=== PATIENT | female | born 1960 | race Two or more races ===

== ENCOUNTER 2016-12-12 14:25 | Emergency (ER) | payer OTHER ==
[~2016-12-12] VITALS: Ht 172.7 cm; Wt 95.3 kg
[2016-12-12] MEDS ORDERED: IV NS 0.9% 500 ML IV ONE (14:40)
[2016-12-12] MEDS ORDERED: IV SET PRIMARY 1 EA INFUS.SET MC ONE (14:40)
[2016-12-12] MEDS ORDERED: ACETAMINOPHEN ES 500 MG TABLET ONE (14:40)
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
[2016-12-12] MEDS ORDERED: ACETAMINOPHEN ES 500 MG TABLET PO ONE (15:00)
[2016-12-12] MEDS ORDERED: IV NS 0.9% 500 ML BAG IV ONE (15:00)
--- NOTE | 2016-12-12 15:00 | NUR ---
US TECH AT BEDSIDE
[2016-12-12 15:03] LABS: BASOPHILS # (AUTO) 0.1 /CMM (0.0-0.2); BASOPHILS % (AUTO) 1.2 % (0.0-2.0); EOSINOPHILS # (AUTO) 0.1 /CMM (0.0-0.7); EOSINOPHILS % (AUTO) 0.7 % (0.0-6.0); HEMATOCRIT 42 % (33-45); HEMOGLOBIN 13.1 g/dL (11.5-14.8); LYMPHOCYTES # (AUTO) 2.2 /CMM (0.8-4.8); LYMPHOCYTES % (AUTO) 21.6 % (20.0-44.0); MEAN CORPUSCULAR HEMOGLOBIN 28 PG (26.0-33.0); MEAN CORPUSCULAR HGB CONC 31 g/dl (31.0-36.0); MEAN CORPUSCULAR VOLUME 90 fL (82-100); MONOCYTES # (AUTO) 0.6 /CMM (0.1-1.30); MONOCYTES % (AUTO) 5.9 % (2.0-12.0); NEUTROPHILS # (AUTO) 7.3 /CMM (1.8-8.9); NEUTROPHILS % (AUTO) 70.6 % (43.0-81.0); PLATELET COUNT (AUTO) 253 /CMM (150-450); RDW COEFFICIENT OF VARIATION 12.9 (11.5-15.0); RED BLOOD CELL COUNT(AUTO) 4.67 MIL/uL (4.0-5.2); WHITE BLOOD COUNT (AUTO) 10.3 K/uL (4.3-11.0)
[2016-12-12 15:14] LABS: ALBUMIN 3.4 g/dL (3.4-5.0); BILIRUBIN,DIRECT 0.1 mg/dL (0.0-0.2); BILIRUBIN,TOTAL 0.3 mg/dL (0.2-1.0); CALCIUM, SERUM 9.3 mg/dL (8.5-10.1); CREATININE 0.8 mg/dL (0.6-1.3); POTASSIUM 4.1 mmol/L (3.5-5.1); TOTAL PROTEIN, SERUM 7.5 g/dL (6.4-8.2)
[2016-12-12 15:29] LABS: APPEARANCE,URINE Clear (CLEAR); BILIRUBIN,URINE Negative (NEGATIVE); BLOOD, URINE Negative Ery/uL (NEGATIVE); COLOR,URINE Yellow (YELLOW); KETONES,URINE Negative (NEGATIVE); LEUKOCYTE ESTERASE ,URINE Negative (NEGATIVE); NITRITE, URINE Negative (NEGATIVE); PH,URINE 5.5 (5.0-8.0); PROTEIN,URINE Negative (NEGATIVE); UGLUCOSE Negative (NEGATIVE); UROBILINOGEN,URINE 0.2 EU/dL (0.2)
[2016-12-12] MEDS ORDERED: MORPHINE SULFATE INJ 2 MG/ML DISP.SYRIN IV ONE (15:30)
[2016-12-12] MEDS ORDERED: ONDANSETRON HCL/PF 4 MG/2 ML VIAL IV ONE (15:30)
[2016-12-12 16:40] VITALS: BP 141/89
--- NOTE | 2016-12-12 16:40 | NUR ---
Patient discharged to home in stable condition. Written and verbal after care instructions given. Patient verbalizes understanding of instruction. IV removed. Catheter intact and site benign. Pressure and 4x4 applied to site. No bleeding noted.
[2016-12-12 17:30] LABS: EOSINOPHILS % (MANUAL) 1 % (0-4); LYMPHOCYTES % (MANUAL) 20 % (16-48); MONOCYTES % (MANUAL) 4 % (0-11.0); NEUTROPHILS % (MANUAL) 73 (42-76); PLATELET ESTIMATE ADEQUATE; REACTIVE LYMPHOCYTES 2 % (0-0)
[2016-12-12 17:31] LABS: ANISOCYTOSIS 1+
== END 2016-12-12 16:41 | disposition home or self-care (01) ==
LOC: ER 14:29
DX: R10.11 Right upper quadrant pain (principal); K57.30 Diverticulosis of large intestine without perforation or abscess without bleeding; I10 Essential (primary) hypertension
CPT/HCPCS: 36415; 74176; 76705; 80048; 80076; 81001; 83690; 85025; 99285; A4606; J7040; Z7610; 81000-TC

== ENCOUNTER 2017-08-18 21:18 | Emergency (ER) | payer OTHER ==
[~2017-08-18] VITALS: Ht 147.3 cm; Wt 72.6 kg
--- NOTE | 2017-08-18 22:28 | NUR ---
PT RECIEVED FROM HOME BY FAMILY C/O HIGH BP AND ABDOMINAL PAIN 10/30. NO OSB NOTED AT THIS TIME. A/O X4 VSS NAD. WILL CONTINUE TO [facility] FOR ANY CHANGES
--- NOTE | 2017-08-18 22:48 | NUR ---
ER AT BEDSIDE
--- NOTE | 2017-08-18 22:55 | NUR ---
D/C INSTRUCTIONS GIVEN TO PT. AGREED WITH CARE AND HAS LEFT WIHT FAMILY IN STABLE CONDITION
[2017-08-18 22:57] VITALS: BP 187/93
== END 2017-08-18 22:58 | disposition home or self-care (01) ==
LOC: ER 21:22
DX: I10 Essential (primary) hypertension (principal); R14.0 Abdominal distension (gaseous)
CPT/HCPCS: 99281; A4606; Z7610; Z7502